=== PATIENT | female | born 1995 | race Caucasian/White ===

== ENCOUNTER 2024-01-27 04:13 | Emergency (ER) | payer OTHER, SELFPAY ==
--- NOTE | ~2024-01-27 | XR_ITS ---
EXAMINATION: XR hand LT min 3V DATE: 01/27/2024 05:33 INDICATION: Dog bite TECHNIQUE: Posteroanterior, oblique and lateral views of the left hand were obtained. COMPARISON: None. FINDINGS: Alignment is normal. No fracture. Joint spaces are normal. Soft tissues are unremarkable. No soft tis sakshi gas or radiopaque foreign bodies. IMPRESSION: 1. Negative left hand radiographs. Reviewed, dictated and finalized at location A. [facility] [employer] SUPERVISOR
[2024-01-27 04:30] VITALS: BP 111/90; PULSE 101; RESP 15; TEMP 36.6; O2SAT 100
[2024-01-27] MEDS: TETANUS,DIPHTHERIA,AC PERTUSSIS ADULT (0.5 ML) BOOSTRIX IM (04:54)
[2024-01-27] MEDS: AMOXICILLIN/CLAVULANATE K 875-125 MG TAB 1 TABLET PO (05:07)
--- NOTE | 2024-01-27 05:55 | ED_ITS ---
HPI - General Adult General Chief complaint: Animal Bite Stated complaint: dog bites Time Seen by Provider: 01/27/24 04:23 History of Present Illness HPI narrative: patient 28-year-old female who presents emergency department with chief complaint of left thumb nail injury and right pinky injury. The patient reports that she was breaking up a fight between her dogs the patient states that her left thumbnail is bleeding and reports there is a laceration at the nail. The patient reports he is unsure of her last tetanus shot reports both dogs are known and vaccinated Related Data Allergies Allergy/AdvReac Type Severity Reaction Status Date / Time No Known Allergies Allergy Verified 01/27/24 04:36 Review of Systems Review of Systems: A 10 system review of systems was completed on the patient and is negative except for what is stated in the HPI. Nursing and ancillary documentation was reviewed. Exam Narrative: GENERAL: Well-appearing, well-nourished, and in no acute distress. HEAD: Normocephalic, atraumatic. EYES: PERRLA and EOMI. ENT: Nares clear, no rhinorrhea or epistaxis. Mucous membranes moist. NECK: Supple. CHEST: Clear to auscultation. No respiratory distress. HEART: Regular rate and rhythm. No murmur heard. Normal peripheral pulses. ABDOMEN: Soft, nontender, nondistended, normal active bowel sounds. EXTREMITIES: Normal range of motion. No edema. there is laceration involving the nail and nailbed of the left thumb there is a laceration of the volar surface of the right pinky SKIN: Warm, dry, no rash. NEURO: No focal deficits. Alert and oriented x3. PSYCH: Normal mood and affect. Course Vital Signs Vital signs: Vital Signs Temperature 36.6 C 01/27/24 04:30 Pulse Rate 101 H 01/27/24 04:30 Respiratory Rate 15 01/27/24 04:30 Blood Pressure 111/90 01/27/24 04:30 Pulse Oximetry 100 01/27/24 04:30 Oxygen Delivery Room Air 01/27/24 04:30 Temperature 36.6 C 01/27/24 04:30 Pulse Rate 101 H 01/27/24 04:30 Respiratory Rate 15 01/27/24 04:30 Blood Pressure 111/90 01/27/24 04:30 Pulse Oximetry 100 01/27/24 04:30 Oxygen Delivery Room Air 01/27/24 04:30 Procedures Laceration Laceration 1: Date: 01/27/24 Time: 05:55 Site: hand Side (If applicable): right Size (cm): 1 Description: linear Depth: simple, single layer Local Anesthetic: lidocaine 1% Amount of anesthesia used (mL): 3 Pre-repair: wound explored and irrigated ====== Skin Level ====== Skin layer closed with: nylon Size (cm): 4-0 Number of sutures: 3 Technique: simple, interrupted ====== Subcutaneous Layer ====== ====== Muscle Layer ====== ====== Tendon Layer ====== Laceration 2: Date: 01/27/24 Time: 05:56 Site: hand Side (If applicable): left Size (cm): 1 Depth: simple, single layer (nail bed repair) Local Anesthetic: lidocaine 1% Amount of anesthesia used (mL): 10 Pre-repair: wound explored ====== Skin Level ====== Skin layer closed with: nylon Size (cm): 4-0 Number of sutures: 1 Technique: simple, interrupted ====== Subcutaneous Layer ====== Subcutaneous layer closed with: chromic gut Size: 5-0 Number of sutures: 3 Technique: simple, interrupted ====== Muscle Layer ====== ====== Tendon Layer ====== Dressing: after digital block was applied by me the nail was removed the nail bed was repaired using chromic gut the nail was placed back into the nail bed and sutured in place with a single 4-0 Ethilon suture Medical Decision Making Vital Signs Vital Signs: Vital Signs Temperature 36.6 C 01/27/24 04:30 Pulse Rate 101 H 01/27/24 04:30 Respiratory Rate 15 01/27/24 04:30 Blood Pressure 111/90 01/27/24 04:30 Pulse Oximetry 100 01/27/24 04:30 Oxygen Delivery Room Air 01/27/24 04:30 Temperature 36.6 C 01/27/24 04:30 Pulse Rate 101 H 01/27/24 04:30 Respiratory Rate 15 01/27/24 04:30 Blood Pressure 111/90 01/27/24 04:30 Pulse Oximetry 100 01/27/24 04:30 Oxygen Delivery Room Air 01/27/24 04:30 Discharge Plan Discharge Clinical Impression: Dog bite, Laceration of left thumb with damage to nail, Laceration of right little finger Patient Disposition: Home, Self-Care Condition: Stable Instructions: Antibiotic Form, Animal Bite (ED), Care For Your Stitches (ED), Laceration (ED) Additional Instructions: please watch for signs of infection. Please return to the emergency department if your symptoms worsen please have the sutures removed in 7 days Prescriptions: New amoxicillin-pot clavulanate 875-125 mg tablet 1 tablet PO Q12H 10 Days Qty: 20 0RF Follow-up/Referrals: PHYSICIAN,KNITTING MACHINE OPERATOR [Primary Care Provider] - James Bowman MD [Physician] - Time of Disposition: 06:01
== END 2024-01-27 06:18 | disposition home or self-care (01) ==
LOC: ANHED 06:08
PROVIDERS: Emergency Provider Emergency Medicine
DX: S61.152A Open bite of left thumb with damage to nail, initial encounter (principal); S61.256A Open bite of right little finger without damage to nail, initial encounter; Z23 Encounter for immunization; W54.0XXA Bitten by dog, initial encounter
CPT/HCPCS: 11760; 12001; 73130; 90471; 90715; 99283; A9270; J0295; J2003